=== PATIENT | female | born 1985 | race Caucasian/White ===

== ENCOUNTER 2017-09-24 10:57 | Emergency (ER) | payer SELFPAY ==
[2017-09-24 11:02] VITALS: BP 131/85
[2017-09-24] MEDS ORDERED: KETOROLAC TROMETHAMINE INJ/PF 30 MG/1 ML SDV IM ONE (12:11)
--- NOTE | 2017-09-24 12:15 | ER Document Report ---
ED Neck/Back Problem - General Chief Complaint: Low Back Pain Stated Complaint: BACK PAIN Time Seen by Provider: 09/24/17 11:55 Mode of Arrival: Ambulatory Information source: Patient TRAVEL OUTSIDE OF THE [place] IN LAST 30 DAYS: No - HPI Patient complains to provider of: Pain, Lower back Notes: Patient is here with complaints of low back pain. The patient has a history of chronic low back pain is degenerative disc disease. States that over the last few days her pain is gotten worse than normal. Pain is now radiating down both of her legs occasionally. She denies any bowel or bladder dysfunction. No recent fall or injury. No fever. No abdominal pain. No nausea, vomiting, diarrhea. No dysuria or hematuria. No rash. She denies any IV drug use. No chest pain or shortness of breath. Pain is worse with movement, better with rest. She was having trouble at work states that her home and she came into that she could be evaluated and to get a work note. No other complaints. - Related Data Allergies/Adverse Reactions: latex [Latex] Allergy (Verified 10/13/15 04:19) SWELLING Past Medical History - Social History Smoking Status: Current Every Day Smoker Family History: Hypertension - Past Medical History Cardiac Medical History: Denies: Hx Coronary Artery Disease, Hx Heart Attack, Hx Hypertension Pulmonary Medical History: Reports: Hx Pneumonia - walking pneumonia Denies: Hx Asthma, Hx Bronchitis, Hx COPD, Hx Tuberculosis Neurological Medical History: Denies: Hx Cerebrovascular Accident, Hx Seizures GI Medical History: Reports: Hx Gastroesophageal Reflux Disease Musculoskeltal Medical History: Denies Hx Arthritis Psychiatric Medical History: Reports: Hx Bipolar Disorder - borderline per pt, Hx Depression - Anxiety Denies: Hx Post Traumatic Stress Disorder, Hx Schizophrenia Past Surgical History: Reports: Hx Cholecystectomy, Hx Oral Surgery - wisdom teeth removed, Hx Tubal Ligation. Denies: Hx Hysterectomy, Hx Pacemaker - Immunizations Hx Diphtheria, Pertussis, Tetanus Vaccination: Yes - 2006 Review of Systems - Review of Systems -: Yes All other systems reviewed and negative Physical Exam - Vital signs Vitals: Temp Pulse Resp BP Pulse Ox 98.6 F 98 16 131/85 H 98 09/24/17 11:01 09/24/17 11:01 09/24/17 11:01 09/24/17 11:01 09/24/17 11:01 - Notes Notes: GENERAL: alert, cooperative, nontoxic, no distress. HEAD: normocephalic, atraumatic EYES: conjunctiva pink without discharge, no external redness or swelling. EARS: no external swelling, no external redness NOSE: atraumatic, no external swelling MOUTH/THROAT: mucous membranes moist and pink, posterior pharynx without erythema, swelling, exudate. No trismus or drooling. NECK: soft, supple, full range of motion, no meningismus. CHEST: no distress, lungs clear and equal throughout. No wheezing, rales, rhonchi. CARDIAC: regular rate and rhythm, no murmur, normal capillary refill, normal pulses. No peripheral edema noted. ABDOMEN: soft, nontender, no pusatile mass. BACK: No CVA tenderness. Mild tenderness to the lumbar paraspinal muscles. No midline tenderness, step-offs, crepitus. Slightly limited range of motion secondary to pain. EXTREMITIES: full range of motion of all extremities. No redness, no swelling. NEURO: alert and oriented A&O x 3, no focal deficits, full range of motion of all extremities. 5 out of 5 flexion and extension of the lower extremities bilaterally. Patellar and Achilles deep tendon reflexes are +2 bilaterally. Normal sensation with no saddle anesthesia. Patient can dorsiflex the great toes bilaterally. PYSCH: appropriate mood, affect. Patient is cooperative. SKIN: pink, warm, dry, no rash. Course - Re-evaluation Re-evalutation: 09/24/17 12:13 Patient is nontoxic appearing with stable vitals. She is here with complaints of low back pain. She is a history of chronic back pain and denies any new injuries or falls. No fever. No IV drug use. No sign or risk of cauda equina , epidural abscess/bleed, discitis, osteomyelitis, pyelonephritis, UTI, AAA. She is a benign exam at this time. This point the patient was given a shot of Toradol in the emergency department will be discharged home with [place]. She will be given referral to the [facility]. Follow-up if not better in the next week, sooner for worsening pain, fever, numbness, tingling, weakness , bowel or bladder dysfunction, or for any further concerns. The patient is noted to have elevated blood pressure during today's emergency department visit. The patient was informed of this finding. The patient was instructed that this may be related to pre-hypertension and requires further evaluation with a primary care provider. The patient has no hypertensive symptoms at this time. The patient's emergency department workup and current diagnosis were explained to the patient and or family. Follow-up instructions were provided. Medications if prescribed were discussed. Instructions for when to return to the emergency department including specific worrisome symptoms were discussed with the patient and/or family. - Vital Signs Vital signs: Temp Pulse Resp BP Pulse Ox 98.6 F 98 16 131/85 H 98 09/24/17 11:01 09/24/17 11:01 09/24/17 11:01 09/24/17 11:01 09/24/17 11:01 Discharge - Discharge Clinical Impression: Chronic low back pain Qualifiers: Back pain laterality: bilateral Sciatica presence: with sciatica Sciatica laterality: bilateral sciatica Qualified Code(s): M54.42 - Lumbago with sciatica , left side; M54.41 - Lumbago with sciatica, right side; M54.41 - Lumbago with sciatica, right side; G89.29 - Other chronic pain; G89.29 - Other chronic pain Condition: Stable Disposition: HOME, SELF-CARE Instructions: Low Back Pain ([facility]) Additional Instructions: Take medications as prescribed. Follow-up with your doctor at the next available appointment. Follow-up sooner for worsening pain, fever, numbness, tingling, weakness, bowel or bladder dysfunction, or for any further concerns. Your blood pressure was elevated during today's visit. Have this rechecked with your doctor. Prescriptions: Diclofenac Sodium [Voltaren 50 Mg Tablet.] 50 mg PO BID #20 tablet. Forms: Elevated Blood Pressure, Smoking Cessation Education Referrals: [facility] [Provider Group] - Follow up as needed
== END 2017-09-24 12:24 | disposition home or self-care (01) ==
LOC: ER 10:57
DX: M54.42 Lumbago with sciatica, left side (principal); M54.41 Lumbago with sciatica, right side; G89.29 Other chronic pain; Z91.040 Latex allergy status; Z90.49 Acquired absence of other specified parts of digestive tract; Z98.51 Tubal ligation status
CPT/HCPCS: 99283; 96372; J1885

== ENCOUNTER 2017-09-28 07:52 | Emergency (ER) | payer SELFPAY ==
[2017-09-28] MEDS ORDERED: NORMAL SALINE 1000 ML 1,000 ML IV ONE (08:38)
[2017-09-28] MEDS ORDERED: KETOROLAC TROMETHAMINE INJ/PF 30 MG/1 ML SDV IV ONE (08:38)
[2017-09-28] MEDS ORDERED: ONDANSETRON HCL INJ/PF 4 MG/2 ML SDV IV ONE (08:40)
[2017-09-28] MEDS ORDERED: FAMOTIDINE INJ/PF 20 MG/2 ML SDV IV ONE (08:40)
--- NOTE | 2017-09-28 09:17 | RADIOLOGY REPORT (SQ) ---
EXAM DESCRIPTION: ACUTE ABDOMEN SERIES COMPLETED DATE/TIME: 09/28/2017 9:06 am REASON FOR STUDY: ruq pain COMPARISON: None. NUMBER OF VIEWS: Three views. TECHNIQUE: Frontal chest, supine abdomen and upright/decubitus abdomen radiographic images acquired. LIMITATIONS: None. FINDINGS: CHEST: Lungs clear of infiltrates. FREE AIR: None. No abnormal gas collections. BOWEL GAS PATTERN: Nonobstructive pattern. No dilated loops or air fluid levels. CALCIFICATIONS: No suspicious calcifications. HARDWARE: Bilateral tubal ligation clips. SOFT TISSUES: No gross mass or suggestion of organomegaly. BONES: No acute fracture. No worrisome bone lesions. OTHER: No other significant finding. IMPRESSION: NO RADIOGRAPHIC EVIDENCE FOR ACUTE ABDOMINAL DISEASE. TECHNICAL DOCUMENTATION: JOB ID: [id number] [email or web address] All Rights Reserved Reading location - IP/workstation name: [email or web address]
[2017-09-28 09:55] LABS: ABSOLUTE EOSINOPHILS # (AUTO) 0.2 10^3/uL (0.0-0.6); ABSOLUTE MONOCYTES (AUTO) 0.6 10^3/uL (0.1-1.4); ABSOLUTE NEUT (AUTO) 6.8 10^3/uL (1.7-8.2); BASOPHILS % (AUTO) 0.4 % (0-2); EOSINOPHILS % (AUTO) 2.7 % (0-6); HEMATOCRIT 35.8 % (36.0-47.0); HEMOGLOBIN 12.2 g/dL (12.0-15.5); LYMPHOCYTES % (AUTO) 11.4 % (13-45); MEAN CORPUSCULAR HEMOGLOBIN 31.1 pg (27.0-33.4); MEAN CORPUSCULAR HGB CONC 34.2 g/dL (32.0-36.0); MEAN CORPUSCULAR VOLUME 91 fl (80-97); MONOCYTES % (AUTO) 7.2 % (3-13); PLATELET COUNT 253 10^3/uL (150-450); RED BLOOD COUNT 3.93 10^6/uL (3.72-5.28); RED CELL DISTRIBUTION WIDTH 12.7 % (11.5-14.0); SEGMENTED NEUTROPHILS % (AUTO) 78.3 % (42-78); TOTAL CELLS COUNTED % (AUTO) 100 %; WHITE BLOOD COUNT 8.7 10^3/uL (4.0-10.5)
[2017-09-28 10:06] LABS: ALANINE AMINOTRANSFERASE 68 U/L (9-52); ALBUMIN 3.9 g/dL (3.5-5.0); ALKALINE PHOSPHATASE 74 U/L (38-126); ANION GAP 10 (5-19); ASPARTATE AMINO TRANSFERASE 91 U/L (14-36); BILIRUBIN,DIRECT 0.2 mg/dL (0.0-0.4); BILIRUBIN,TOTAL 0.3 mg/dL (0.2-1.3); BLOOD UREA NITROGEN 13 mg/dL (7-20); CALCIUM 9.3 mg/dL (8.4-10.2); CARBON DIOXIDE 30 mmol/L (22-30); CHLORIDE 105 mmol/L (98-107); GLUCOSE 110 mg/dL (75-110); LIPASE 25.8 U/L (23-300); POTASSIUM 3.5 mmol/L (3.6-5.0); SODIUM 144.6 mmol/L (137-145); TOTAL PROTEIN 6.4 g/dL (6.3-8.2)
[2017-09-28] MEDS ORDERED: LIDOCAINE 2% VISCOUS SOLN 20 ML UDCUP PO ONE (10:36)
[2017-09-28] MEDS ORDERED: MAG HYDROX/AL HYDROX/SIMETH SUSP 30 ML UDCUP PO ONE (10:36)
[2017-09-28] MEDS ORDERED: METOCLOPRAMIDE HCL ORAL SOLN 10 MG/10 ML UDCUP PO ONE (10:36)
--- NOTE | 2017-09-28 10:41 | ER Document Report ---
ED General - General Chief Complaint: Upper Abdominal Pain Stated Complaint: ABDOMINAL PAIN Time Seen by Provider: 09/28/17 08:05 TRAVEL OUTSIDE OF THE [place] IN LAST 30 DAYS: No - HPI Patient complains to provider of: Right upper quadrant abdominal pain nausea vomiting Notes: Patient coming in with above-stated symptoms ongoing for approximately 1 week. Patient states mostly exacerbated with food states states his burning does radiate to her back. Patient has a history of cholecystectomy approximately 6 years ago. Patient upon review of her old records that showed a upper GI scope at that time showing gastritis and duodenitis. Patient denies being on any PPIs or other medications for any GI issues. Patient denies any fevers or chills patient denies any recent antibiotics denies any recent travel. Patient upon my evaluation as she is resting comfortably - Related Data Allergies/Adverse Reactions: latex [Latex] Allergy (Verified 09/28/17 07:54) SWELLING Past Medical History - Social History Smoking Status: Current Every Day Smoker Chew tobacco use (# tins/day): No Frequency of alcohol use: None Drug Abuse: None Family History: Hypertension Patient has suicidal ideation: No Patient has homicidal ideation: No - Past Medical History Cardiac Medical History: Denies: Hx Coronary Artery Disease, Hx Heart Attack, Hx Hypertension Pulmonary Medical History: Reports: Hx Pneumonia - walking pneumonia Denies: Hx Asthma, Hx Bronchitis, Hx COPD, Hx Tuberculosis Neurological Medical History: Denies: Hx Cerebrovascular Accident, Hx Seizures Renal/ Medical History: Denies: Hx Peritoneal Dialysis GI Medical History: Reports: Hx Gastroesophageal Reflux Disease Musculoskeltal Medical History: Denies Hx Arthritis Psychiatric Medical History: Reports: Hx Bipolar Disorder - borderline per pt, Hx Depression - Anxiety Denies: Hx Post Traumatic Stress Disorder, Hx Schizophrenia Past Surgical History: Reports: Hx Cholecystectomy, Hx Oral Surgery - wisdom teeth removed, Hx Tubal Ligation. Denies: Hx Hysterectomy, Hx Pacemaker - Immunizations Hx Diphtheria, Pertussis, Tetanus Vaccination: Yes - 2006 Review of Systems - Review of Systems Gastrointestinal: Abdominal pain, Nausea, Vomiting -: Yes All other systems reviewed and negative Physical Exam - Vital signs Vitals: Temp Pulse Resp BP Pulse Ox 98.4 F 91 18 117/80 98 09/28/17 07:58 09/28/17 07:58 09/28/17 07:58 09/28/17 07:58 09/28/17 07:58 Interpretation: Normal - General General appearance: Appears well, Alert - HEENT Head: Normocephalic, Atraumatic Eyes: Normal Pupils: PERRL - Respiratory Respiratory status: No respiratory distress Chest status: Nontender Breath sounds: Normal Chest palpation: Normal - Cardiovascular Rhythm: Regular Heart sounds: Normal auscultation Murmur: No - Abdominal Inspection: Normal Distension: No distension Bowel sounds: Normal Tenderness: Nontender. No: McBurney's point, Cueto's sign, Guarding, Rebound Organomegaly: No organomegaly - Back Back: Normal, Nontender - Extremities General upper extremity: Normal inspection, Nontender, Normal color, Normal ROM , Normal temperature General lower extremity: Normal inspection, Nontender, Normal color, Normal ROM , Normal temperature, Normal weight bearing. No: David's sign - Neurological Neuro grossly intact: Yes Cognition: Normal Orientation: AAOx4 [place] Coma Scale Eye Opening: Spontaneous [place] Coma Scale Verbal: Oriented [place] Coma Scale Motor: Obeys Commands Shreya Coma Scale Total: 15 Speech: Normal Motor strength normal: LUE, RUE, LLE, RLE Sensory: Normal - Psychological Associated symptoms: Normal affect, Normal mood - Skin Skin Temperature: Warm Skin Moisture: Dry Skin Color: Normal Course - Re-evaluation Re-evalutation: 09/28/17 15:09 The patient presents with abdominal pain without signs of peritonitis or other life-threatening or serious etiology. The patient appears stable for discharge and has been instructed to return immediately if the symptoms worsen in any way , or in 8-12hr if not improved for re-evaluation. The patient has been instructed to return if the symptoms worsen or change in any way. Laboratory studies do not show any significant pathology. Patient's history of GI scope showing duodenitis possible etiology for her symptoms. Patient was treated with Carafate and Reglan Bentyl and PPI. I recommend patient follow-up with primary care physician for further evaluation. Patient was also instructed to use this to clear liquid diet for the next 1224 hrs. Patient states understanding was discharged home - Vital Signs Vital signs: Temp Pulse Resp BP Pulse Ox 97.7 F 73 20 116/79 97 09/28/17 10:59 09/28/17 10:59 09/28/17 10:59 09/28/17 10:59 09/28/17 10:59 - Laboratory Result Diagrams: 09/28/17 09:20 09/28/17 09:20 Laboratory results interpreted by me: 09/28/17 09/28/17 09:20 09:20 Hct 35.8 L Seg Neutrophils % 78.3 H Lymphocytes % 11.4 L Potassium 3.5 L AST 91 H ALT 68 H Discharge - Discharge Clinical Impression: Upper abdominal pain Condition: Good Disposition: HOME, SELF-CARE Instructions: Clear Liquid Diet ([facility]), Gastritis ([facility]), Gastroenterology Additional Instructions: Your evaluation today is consistent with gastritis more likely duodenitis the inflammation of the last part of the stomach. Your laboratory studies not show any other specific pathology. No signs of hepatitis pancreatitis no signs of any infections or no signs of anything that require emergent surgery. You do should have a recent EGD performed 2011 2012 that did show some inflammation of this area. Treatment involves medication omeprazole to reduce acid production. Reglan to help out with any nausea. Carafate to help out with inflammation of the stomach by coating the stomach. Bentyl was prescribed to help out with any abdominal pain. Would recommend taking Tylenol for pain he may take intermittent Motrin but I would advise you to try to avoid anti-inflammatories as this can cause gastritis or duodenitis to worsen. Do recommend she follow- up with your GI specialist. Return to ER for any other concerns. Prescriptions: Dicyclomine HCl [Bentyl 20 mg Tablet] 20 mg PO QID #40 tablet Metoclopramide HCl [Reglan] 5 mg PO Q6 #30 tablet Omeprazole 20 mg PO DAILY #30 capsule. Sucralfate [Carafate 1 gm Tablet] 1 gm PO ACHS #120 tablet Forms: Return to Work
[2017-09-28 11:03] VITALS: BP 116/79
== END 2017-09-28 11:03 | disposition home or self-care (01) ==
LOC: ER 07:52
DX: R10.11 Right upper quadrant pain (principal); R11.2 Nausea with vomiting, unspecified; F17.200 Nicotine dependence, unspecified, uncomplicated; Z90.49 Acquired absence of other specified parts of digestive tract; Z87.19 Personal history of other diseases of the digestive system; Z91.040 Latex allergy status
CPT/HCPCS: 99284; 96361; 96374; 96375; 36415; 83690; 85025; 80053; 74022; J3490; J1885; J2405; J7030; S0028

== ENCOUNTER 2017-10-27 13:46 | Emergency (ER) | payer SELFPAY ==
[2017-10-27 14:02] VITALS: BP 125/81
--- NOTE | 2017-10-27 14:38 | ER Document Report ---
HPI - HPI Pain Level: 4 Notes: Patient is a 32-year-old female with a history of chronic back pain who presents to the ED complaining of bilateral wrist and hand pain with occasional numbness and tingling that is worse at nighttime. Patient states that she also has been dropping things on occasion. Her symptoms have been ongoing more noticeably over the last 3 days. She is also had some bilateral knee and bilateral ankle pain over the last few days without any known injury. Patient states that she has not had any tick bite or insect bite recently. She has not noticed any rash or illness. Patient states that Tylenol does help with her symptoms. Patient states that she is currently asymptomatic and does not have any pain. Patient states that she is working on getting insurance so she can start to see a specialist. She is otherwise eating and drinking without difficulties. She is urinating normally and having normal bowel movements. No other significant past medical history. Denies any headache, fever, neck pain, URI, sore throat, chest pain, palpitations, syncope, cough, shortness of breath , wheeze, dyspnea, abdominal pain, nausea/vomiting/diarrhea, urinary retention, dysuria, hematuria, loss of control of bowel or bladder, saddle anesthesia, muscle paralysis, or rash. - ROS Systems Reviewed and Negative: Yes All other systems reviewed and negative - REPRODUCTIVE LMP: [id number] Reproductive: DENIES: : - MUSCULOSKELETAL Musculoskeletal: REPORTS: Extremity pain Past Medical History - Social History Smoking Status: Current Every Day Smoker Chew tobacco use (# tins/day): No Frequency of alcohol use: None Drug Abuse: None Family History: Hypertension Patient has suicidal ideation: No Patient has homicidal ideation: No - Past Medical History Cardiac Medical History: Denies: Hx Coronary Artery Disease, Hx Heart Attack, Hx Hypertension Pulmonary Medical History: Reports: Hx Pneumonia - walking pneumonia Denies: Hx Asthma, Hx Bronchitis, Hx COPD, Hx Tuberculosis Neurological Medical History: Denies: Hx Cerebrovascular Accident, Hx Seizures Renal/ Medical History: Denies: Hx Peritoneal Dialysis GI Medical History: Reports: Hx Gastroesophageal Reflux Disease Musculoskeltal Medical History: Denies Hx Arthritis Psychiatric Medical History: Reports: Hx Bipolar Disorder - borderline per pt, Hx Depression - Anxiety Denies: Hx Post Traumatic Stress Disorder, Hx Schizophrenia Past Surgical History: Reports: Hx Cholecystectomy, Hx Oral Surgery - wisdom teeth removed, Hx Tubal Ligation. Denies: Hx Hysterectomy, Hx Pacemaker - Immunizations Hx Diphtheria, Pertussis, Tetanus Vaccination: Yes - 2006 [facility] Provider Document - CONSTITUTIONAL Agree With Documented VS: Yes Notes: PHYSICAL EXAMINATION: GENERAL: Well-appearing, well-nourished and in no acute distress. HEAD: Atraumatic, normocephalic. EYES: Pupils equal round and reactive to light, extraocular movements intact, sclera anicteric, conjunctiva are normal. ENT: EAC clear b/l. TM's intact b/l without erythema, fluid, or perforation. Nares patent and without discharge. oropharynx clear without exudates. No tonsilar hypertrophy or erythema. Moist mucous membranes. No sinus tenderness. NECK: Normal range of motion, supple without lymphadenopathy LUNGS: Breath sounds clear to auscultation bilaterally and equal. No wheezes rales or rhonchi. HEART: Regular rate and rhythm without murmurs, rubs, gallops. ABDOMEN: Soft, nontender, nondistended abdomen. No guarding, no rebound. No masses appreciated. Normal bowel sounds present. No CVA tenderness bilaterally. Musculoskeletal: Wrist/hand b/l: No erythema, ecchymosis, deformity, atrophy noted. + tinel b/l L>R. FROM to passive/active. Strength 5+/5. N/V intact distal. No bony tenderness. Knees/ankles: FROM. Strength 5+/5. N/V intact distal. no erythema, ecchymosis, deformity, warmth, swelling. Non-tender. Extremities: No cyanosis, clubbing, or edema b/l. Peripheral pulses 2+. Capillary refill less than 3 seconds. NEUROLOGICAL: Normal speech, normal gait. Normal sensory, motor exams PSYCH: Normal mood, normal affect. SKIN: Warm, Dry, normal turgor, no rashes or lesions noted. - INFECTION CONTROL TRAVEL OUTSIDE OF THE [place] IN LAST 30 DAYS: No Course - Re-evaluation Re-evalutation: 10/27/17 14:36 Patient is an afebrile, well-hydrated, 32-year-old female who presents to the ED with bilateral wrist and hand pain, suspect carpal tunnel syndrome. Vitals are acceptable. PE is otherwise unremarkable for any neurovascular compromise, obvious tendon/ligament rupture, obvious fracture/dislocation, septic joint. No labs or imaging warranted at this time based on H&P. Patient is otherwise asymptomatic at this time without any signs of infection or injury. I will send her home with a steroid taper. Conservative measures otherwise for symptoms. Patient may garbage pick up worker a volar wrist splint at the pharmacy to wear as needed. Patient to establish with the PCM in the next week. Consider consult orthopedic/physical therapy. Return to the ED with any worsening/concerning symptoms otherwise as reviewed discharge. Patient is in agreement. - Vital Signs Vital signs: Temp Pulse Resp BP Pulse Ox 98.8 F 77 16 125/81 97 10/27/17 14:00 10/27/17 14:00 10/27/17 14:00 10/27/17 14:00 10/27/17 14:00 Discharge - Discharge Clinical Impression: Bilateral wrist pain Condition: Stable Disposition: HOME, SELF-CARE Instructions: Carpal Tunnel Syndrome ([facility]) Additional Instructions: Rest, Ice, Compression, Elevation Tylenol/ibuprofen as needed Light stretches daily Strength exercises as able Moist heat and massage may help F/u with your PCP in 3-5 days for a recheck Consider consult(s) with Orthopedics/physical therapy for ongoing/worsening symptoms Return to the ED with any worsening symptoms and/or development of fever, headache, chest pain, palpitations, syncope, shortness of breath, trouble breathing, abdominal pain, n/v/d, muscle weakness/paralysis, numbness/tingling, swelling, redness, or other worsening symptoms that are concerning to you. Prescriptions: Prednisone 20 mg PO ASDIR #18 tablet Forms: Smoking Cessation Education Referrals: [facility] [Provider Group] - Follow up as needed
== END 2017-10-27 14:47 | disposition home or self-care (01) ==
LOC: ER 13:46
DX: G89.29 Other chronic pain (principal); M25.532 Pain in left wrist; M25.531 Pain in right wrist; M79.642 Pain in left hand; M79.641 Pain in right hand; M54.9 Dorsalgia, unspecified; F17.200 Nicotine dependence, unspecified, uncomplicated; Z90.49 Acquired absence of other specified parts of digestive tract
CPT/HCPCS: 99283

== ENCOUNTER 2019-11-30 22:44 | Observation (INO) | payer SELFPAY ==
--- NOTE | 2019-11-30 22:57 | ER Document Report ---
ED Medical Screen (RME) - General Stated Complaint: SNAKE BITE Time Seen by Provider: 11/30/19 22:55 Mode of Arrival: Wheelchair Information source: Patient Notes: Patient reports getting bit by a snake about an hour prior to arrival. Patient complains of increased pain and some swelling distal to the site of the bite. Patient does have puncture wound to medial aspect of left lower leg. I have greeted and performed a rapid initial assessment of this patient. A comprehensive ED assessment and evaluation of the patient, analysis of test results and completion of the medical decision making process will be conducted by additional ED providers. TRAVEL OUTSIDE OF THE [place] IN LAST 30 DAYS: No - Related Data Allergies/Adverse Reactions: latex [Latex] Allergy (Verified 10/27/17 13:47) SWELLING Past Medical History - Past Medical History Cardiac Medical History: Denies: Hx Coronary Artery Disease, Hx Heart Attack, Hx Hypertension Pulmonary Medical History: Reports: Hx Pneumonia - walking pneumonia Denies: Hx Asthma, Hx Bronchitis, Hx COPD, Hx Tuberculosis Neurological Medical History: Denies: Hx Cerebrovascular Accident, Hx Seizures Renal/ Medical History: Denies: Hx Peritoneal Dialysis GI Medical History: Reports: Hx Gastroesophageal Reflux Disease Musculoskeltal Medical History: Denies Hx Arthritis Psychiatric Medical History: Reports: Hx Bipolar Disorder - borderline per pt, Hx Depression - Anxiety Denies: Hx Post Traumatic Stress Disorder, Hx Schizophrenia Past Surgical History: Reports: Hx Cholecystectomy, Hx Oral Surgery - wisdom teeth removed, Hx Tubal Ligation. Denies: Hx Hysterectomy, Hx Pacemaker - Immunizations Hx Diphtheria, Pertussis, Tetanus Vaccination: Yes - 2005 Physical Exam - General Notes: Tenderness to distal left lower extremity with mild edema and puncture lamont wounds to medial aspect of the leg. Course - Re-evaluation Re-evalutation: 11/30/19 22:57 Charge nurse advised the patient status.
[2019-11-30] MEDS ORDERED: FENTANYL CITRATE INJ/PF 100 MCG/2 ML AMPUL IV ONE (23:31)
[2019-11-30] MEDS ORDERED: ANTIVENIN,CROTALIDAE FAB(OVIN) INJ 1 VIAL IV ONE (23:59)
[2019-11-30] MEDS ORDERED: NORMAL SALINE 1000 ML 1,000 ML IV ONE (23:59)
[2019-12-01] MEDS ORDERED: HYDROMORPHONE HCL INJ/PF 2 MG/ML AMPULE IV ONE (00:18)
[2019-12-01] MEDS ORDERED: FAMOTIDINE INJ/PF 20 MG/2 ML SDV IV ONE (00:19)
[2019-12-01] MEDS ORDERED: DIPHENHYDRAMINE HCL 50 MG/ML VIAL IV ONE (00:19)
[2019-12-01] MEDS ORDERED: CEFAZOLIN 2 GM/D5W RTU 2 GM/50 ML RTUPB IV ONE ×2 (00:20→00:46)
[2019-12-01 00:25] LABS: ABSOLUTE BASOPHILS # (AUTO) 0.1 10^3/uL (0.0-0.2); ABSOLUTE EOSINOPHILS # (AUTO) 0.2 10^3/uL (0.0-0.6); ABSOLUTE MONOCYTES (AUTO) 0.7 10^3/uL (0.1-1.4); ABSOLUTE NEUT (AUTO) 7.3 10^3/uL (1.7-8.2); BASOPHILS % (AUTO) 0.5 % (0-2); EOSINOPHILS % (AUTO) 1.8 % (0-6); HEMATOCRIT 41.2 % (36.0-47.0); HEMOGLOBIN 14.3 g/dL (12.0-15.5); LYMPHOCYTES % (AUTO) 19.6 % (13-45); MEAN CORPUSCULAR HEMOGLOBIN 31.6 pg (27.0-33.4); MEAN CORPUSCULAR HGB CONC 34.7 g/dL (32.0-36.0); MEAN CORPUSCULAR VOLUME 91 fl (80-97); MONOCYTES % (AUTO) 6.6 % (3-13); PLATELET COUNT 228 10^3/uL (150-450); RED BLOOD COUNT 4.52 10^6/uL (3.72-5.28); RED CELL DISTRIBUTION WIDTH 12.9 % (11.5-14.0); SEGMENTED NEUTROPHILS % (AUTO) 71.5 % (42-78); TOTAL CELLS COUNTED % (AUTO) 100 %; WHITE BLOOD COUNT 10.2 10^3/uL (4.0-10.5)
--- NOTE | 2019-12-01 00:27 | ER Document Report ---
ED General - General Chief Complaint: Snake Bite Stated Complaint: SNAKE BITE Time Seen by Provider: 11/30/19 22:55 Mode of Arrival: Wheelchair Information source: Patient Notes: 11/30/19 23:[address] Hinson regarding patient, she advises starting CroFab with patient's worsening pain and swelling symptoms. - Vital Signs Vital signs: Temp Pulse Resp BP Pulse Ox 99.4 F 92 16 126/80 H 100 11/30/19 23:05 11/30/19 23:05 11/30/19 23:08 11/30/19 23:05 11/30/19 23:05 Original Note: ED Medical Screen (RME) - General Stated Complaint: SNAKE BITE Time Seen by Provider: 11/30/19 22:55 Mode of Arrival: Wheelchair Information source: Patient Notes: Patient reports getting bit by a snake about an hour prior to arrival. Patient complains of increased pain and some swelling distal to the site of the bite. Patient does have puncture wound to medial aspect of left lower leg. my notes 34-year-old female arrives with chief complaint of left medial malleolus ankle pain after she was bitten by a snake. @2129 she went outside to see what her dog was barking about and felt instantaneous fire-like sensation to her left medial ankle. She did not see what kind of snake but knew it was a snake by outlines. She called medics and EMS reported at 215 that 2 fang chance were present along the left medial ankle. Measurements were taken of the bite site with no changes and diameter girth by 2346. Patient still in distress from pain despite receiving 50 of fentanyl. She was written for Benadryl Pepcid Decadron Dilaudid Phenergan and IV fluids and antivenom. TRAVEL OUTSIDE OF THE [place] IN LAST 30 DAYS: No - HPI Onset: Just prior to arrival Onset/Duration: Sudden, Persistent Quality of pain: Achy Severity: Severe Pain Level: 5 Associated symptoms: Fever, Leg swelling Exacerbated by: Movement Relieved by: Denies Similar symptoms previously: No Recently seen / treated by doctor: No - Related Data Allergies/Adverse Reactions: latex [Latex] Allergy (Verified 11/30/19 23:35) SWELLING Past Medical History - General Information source: Patient - Social History Smoking Status: Current Every Day Smoker Cigarette use (# per day): Yes Chew tobacco use (# tins/day): No Smoking Education Provided: Yes Frequency of alcohol use: None Drug Abuse: None Lives with: Family Family History: Reviewed & Not Pertinent, Hypertension Patient has suicidal ideation: No Patient has homicidal ideation: No - Past Medical History Cardiac Medical History: Denies: Hx Coronary Artery Disease, Hx Heart Attack, Hx Hypertension Pulmonary Medical History: Reports: Hx Pneumonia - walking pneumonia Denies: Hx Asthma, Hx Bronchitis, Hx COPD, Hx Tuberculosis Neurological Medical History: Denies: Hx Cerebrovascular Accident, Hx Seizures Renal/ Medical History: Denies: Hx Peritoneal Dialysis GI Medical History: Reports: Hx Gastroesophageal Reflux Disease Musculoskeletal Medical History: Denies Hx Arthritis Psychiatric Medical History: Reports: Hx Bipolar Disorder - borderline per pt, Hx Depression - Anxiety Denies: Hx Post Traumatic Stress Disorder, Hx Schizophrenia Past Surgical History: Reports: Hx Cholecystectomy, Hx Oral Surgery - wisdom finesse th removed, Hx Tubal Ligation. Denies: Hx Hysterectomy, Hx Pacemaker - Immunizations Hx Diphtheria, Pertussis, Tetanus Vaccination: Yes - 2005 Review of Systems - Review of Systems Constitutional: See HPI, Weakness EENT: No symptoms reported Cardiovascular: No symptoms reported Respiratory: No symptoms reported Gastrointestinal: No symptoms reported Genitourinary: No symptoms reported Female Genitourinary: No symptoms reported Musculoskeletal: See HPI, Joint pain, Joint swelling, Muscle pain, Ankle swelling Skin: See HPI, Other - Fang chance to a number along left medial malleolus with minimal erythema Hematologic/Lymphatic: No symptoms reported Neurological/Psychological: No symptoms reported Physical Exam - Vital signs Vitals: Temp Pulse BP Pulse Ox 99.4 F 92 126/80 H 100 11/30/19 23:05 11/30/19 23:05 11/30/19 23:05 11/30/19 23:05 Interpretation: Normal - General General appearance: Anxious - HEENT Head: Normocephalic, Atraumatic Eyes: Normal Pupils: PERRL Pharynx: Normal Neck: Normal - Respiratory Respiratory status: No respiratory distress Chest status: Nontender Breath sounds: Normal Chest palpation: Normal - Cardiovascular Rhythm: Regular Heart sounds: Normal auscultation Murmur: No - Abdominal Inspection: Normal Distension: No distension Bowel sounds: Normal Tenderness: Nontender Organomegaly: No organomegaly - Rectal Hemorrhoids: Other - deferred - Genitourinary [place] exam: Other - deferred - Back Back: Normal - Extremities General upper extremity: Normal inspection General lower extremity: Other - Left medial malleolus as per HPI with snakebite to fang chance approximately 1 cm apart - Neurological Neuro grossly intact: Yes Cognition: Normal Orientation: AAOx4 [place] Coma Scale Eye Opening: Spontaneous [place] Coma Scale Verbal: Oriented [place] Coma Scale Motor: Obeys Commands [place] Coma Scale Total: 15 Speech: Normal Motor strength normal: LUE, RUE, LLE, RLE Sensory: Normal - Psychological Associated symptoms: Anxious - Skin Skin Temperature: Warm Course - Vital Signs Vital signs: Temp Pulse Resp BP Pulse Ox 98.0 F 77 16 109/64 100 12/01/19 16:41 12/01/19 16:41 12/01/19 16:41 12/01/19 16:41 12/01/19 16:41 - Laboratory Result Diagrams: 12/01/19 07:05 12/01/19 00:00 Laboratory results interpreted by me: 11/30/19 12/01/19 23:44 00:00 Sodium 136.8 L Ur Leukocyte Esterase TRACE H - EKG Interpretation by Ak EKG shows normal: Sinus rhythm Rate: Normal Rhythm: NSR Critical Care Note - Critical Care Note Comments: I discussed this case with surgeon Dr. Kelton Alexandre at 00 50 and he advises he will see the patient in the ER. Discharge - Discharge Clinical Impression: Snake bite Qualifiers: Encounter type: initial encounter Qualified Code(s): W59.11XA - Bitten by nonvenomous snake, initial encounter Condition: Good Disposition: ADMITTED INPATIENT
[2019-12-01 00:37] LABS: ANION GAP 9 (5-19); BLOOD UREA NITROGEN 11 mg/dL (7-20); CALCIUM 9.5 mg/dL (8.4-10.2); CARBON DIOXIDE 24 mmol/L (22-30); CHLORIDE 104 mmol/L (98-107); CREATINE KINASE 85 U/L (30-135); GLUCOSE 93 mg/dL (75-110); POTASSIUM 3.6 mmol/L (3.6-5.0)
[2019-12-01 00:46] LABS: INTERNATIONAL RATION (INR) 0.97; PROTHROMBIN TIME 12.9 SEC (11.4-15.4)
[2019-12-01 00:47] LABS: FIBRINOGEN 312 mg/dL (209-497); PARTIAL THROMBOPLASTIN TIME 28.4 SEC (23.5-35.8)
[2019-12-01 00:59] LABS: D-DIMER < 0.27 ug/mL (0.00-0.50)
[2019-12-01] MEDS ORDERED: DEXTROSE 5%-LACTATED RINGERS 1,000 ML IV PRN (01:50)
[2019-12-01] MEDS ORDERED: ONDANSETRON HCL INJ/PF 4 MG/2 ML SDV IV PRN (01:50)
--- NOTE | 2019-12-01 01:50 | PDOC H&P ---
History of Present Illness Admission Date/PCP: 12/01/19 Patient complains of: pains left lower leg History of Present Illness: YULI CORCORAN is a 34 year old female who went out to see to check why her dog is barking when she instantaneously felt severe pains on the left medial lower leg. This happened around 930 last night. She called EMS when she noticed snakebite on her left medial malleolar area and was checked and was told to go to the emergency room. She got in the emergency room around 11:35 PM complaining of more severe pains along the left lower leg. She was given pain medicine in the form of Dilaudid and 4 doses of anti-venom (CroFab). Her CBC and coagulation studies were all normal. She had a tetanus shot about a year ago. She is still complaining of pains along the left lower leg below the knee. She could barely dorsiflex her left ankle because of severe pains in the left calf. Denies any diabetes mellitus, no hypertension. She is allergic to latex. Denies any shortness of breath Past Medical History Cardiac Medical History: Denies: Coronary Artery Disease, Myocardial Infarction, Hypertension Pulmonary Medical History: Reports: Pneumonia - walking pneumonia Denies: Asthma, Bronchitis, Chronic Obstructive Pulmonary Disease (COPD), Tuberculosis Neurological Medical History: Denies: Seizures GI Medical History: Reports: Gastroesophageal Reflux Disease Musculoskeltal Medical History: Denies: Arthritis Psychiatric Medical History: Reports: Bipolar Disorder - borderline per pt, Depression - Anxiety Denies: Post Traumatic Stress Disorder Hematology: Denies: Anemia Past Surgical History Past Surgical History: Reports: Cholecystectomy, Tubal Ligation Denies: Hysterectomy, Pacemaker Social History Lives with: Family Smoking Status: Current Every Day Smoker Hx Recreational Drug Use: No Hx Prescription Drug Abuse: No Family History Family History: Reviewed & Not Pertinent, Hypertension Parental Family History Reviewed: Yes Children Family History Reviewed: No Sibling(s) Family History Reviewed.: No Medication/Allergy Home Medications: Sertraline HCl [Zoloft] 1 tab PO DAILY 04/06/15 Dexmethylphenidate HCl [Focalin Xr] 1 tab PO DAILY 02/24/16 Hydroxyzine HCl [Atarax 25 mg Tablet] 1 tab PO QID PRN #20 tablet 02/24/16 Prednisone [Deltasone 5 mg Tablet] 5 mg PO ASDIR PRN #100 tablet 02/24/16 Propranolol HCl [Inderal 10 mg Tablet] 10 mg PO Q8 02/24/16 Topiramate [Topamax 100 mg Tablet] 1 tab PO DAILY 02/24/16 Diclofenac Sodium [Voltaren 50 Mg Tablet.] 50 mg PO BID #20 tablet. 09/24/17 Dicyclomine HCl [Bentyl 20 mg Tablet] 20 mg PO QID #40 tablet 09/28/17 Metoclopramide HCl [Reglan] 5 mg PO Q6 #30 tablet 09/28/17 Omeprazole 20 mg PO DAILY #30 capsule. 09/28/17 Sucralfate [Carafate 1 gm Tablet] 1 gm PO ACHS #120 tablet 09/28/17 Prednisone 20 mg PO ASDIR #18 tablet 10/27/17 Allergies/Adverse Reactions: latex [Latex] Allergy (Verified 11/30/19 23:35) SWELLING Review of Systems Constitutional: PRESENT: as per HPI, other - Denies fever no chills Cardiovascular: PRESENT: other - No chest pains no cough Gastrointestinal: PRESENT: other - No pains Musculoskeletal: PRESENT: other - Pains along the left lower leg below the knee Neurological: PRESENT: other - Some numbness of the left toes Physical Exam Vital Signs: Temp Pulse Resp BP Pulse Ox 99.4 F 92 16 132/68 H 100 11/30/19 23:05 11/30/19 23:05 12/01/19 01:16 12/01/19 01:16 12/01/19 01:16 Intake & Output 11/29/19 11/30/19 12/01/19 06:59 06:59 06:59 Weight 76.5 kg General appearance: PRESENT: severe distress Head exam: PRESENT: atraumatic Mouth exam: PRESENT: moist Neck exam: PRESENT: full ROM Respiratory exam: PRESENT: clear to auscultation letty Cardiovascular exam: PRESENT: RRR Pulses: PRESENT: normal radial pulses Vascular exam: PRESENT: normal capillary refill GI/Abdominal exam: PRESENT: soft Rectal exam: PRESENT: deferred Extremities exam: PRESENT: tenderness - Below the knee to the left foot. There is mild swelling but exquisite tenderness primarily are around snakebites on the left medial malleoli are area. Unable to dorsiflex the left ankle because of severe pains. Neurological exam: PRESENT: alert, oriented to person, oriented to place, oriented to time, oriented to situation Psychiatric exam: PRESENT: anxious Skin exam: PRESENT: normal color, warm Results Laboratory Results: 12/01/19 00:00 12/01/19 00:00 12/01/19 12/01/19 12/01/19 00:00 00:00 00:00 WBC 10.2 RBC 4.52 Hgb 14.3 Hct 41.2 MCV 91 MCH 31.6 MCHC 34.7 RDW 12.9 Plt Count 228 Seg Neutrophils % 71.5 Sodium 136.8 L Potassium 3.6 Chloride 104 Carbon Dioxide 24 Anion Gap 9 BUN 11 Creatinine 0.73 Est GFR ( Amer) > 60 Glucose 93 Calcium 9.5 Serum HCG, Qual NEGATIVE 12/01/19 00:00 Creatine Kinase 85 Assessment & Plan - Diagnosis (1) Snake bite Qualifiers: Encounter type: initial encounter Qualified Code(s): W59.11XA - Bitten by nonvenomous snake, initial encounter Is this a current diagnosis for this admission?: Yes - Time Time Spent: 30 to 50 Minutes - Inpatient Certification Medical Necessity: Need For IV Fluids, Need for Pain Control - Plan Summary Plan Summary: 34-year-old female who had snakebite on the left ankle around 9:30 PM last night. Went to ED around 1135 for increasing pains along the left lower leg after being seen by EMS and confirming the snakebite. She got 4 units of CroFab and intravenous Dilaudid. There is mild swelling along the left ankle and calf with exquisite tenderness. Her vital signs are stable and her blood work are all normal. Plans: Continue with the mild left leg elevation Continue with CroFab every 6 hours Monitor coagulation parameters May need orthopedic evaluation for possible compartment syndrome Will keep n.p.o.
[2019-12-01 02:43] LABS: APPEARANCE,URINE CLEAR; BILIRUBIN,URINE NEGATIVE (NEGATIVE); COLOR,URINE STRAW; GLUCOSE, URINE NEGATIVE (NEGATIVE); KETONES,URINE NEGATIVE (NEGATIVE); LEUKOCYTE ESTERASE,URINE TRACE (NEGATIVE); NITRITE,URINE NEGATIVE (NEGATIVE); PROTEIN,URINE NEGATIVE (NEGATIVE); URINE SPECIFIC GRAVITY 1.009; UROBILINOGEN,URINE NEGATIVE mg/dL (<2.0)
[2019-12-01 07:20] LABS: ABSOLUTE BASOPHILS # (AUTO) 0.1 10^3/uL (0.0-0.2); ABSOLUTE EOSINOPHILS # (AUTO) 0.2 10^3/uL (0.0-0.6); ABSOLUTE LYMPHOCYTES (AUTO) 2.1 10^3/uL (0.5-4.7); ABSOLUTE MONOCYTES (AUTO) 0.6 10^3/uL (0.1-1.4); ABSOLUTE NEUT (AUTO) 4.8 10^3/uL (1.7-8.2); BASOPHILS % (AUTO) 0.8 % (0-2); EOSINOPHILS % (AUTO) 2.1 % (0-6); HEMATOCRIT 38.6 % (36.0-47.0); HEMOGLOBIN 13.4 g/dL (12.0-15.5); LYMPHOCYTES % (AUTO) 27.3 % (13-45); MEAN CORPUSCULAR HEMOGLOBIN 31.9 pg (27.0-33.4); MEAN CORPUSCULAR HGB CONC 34.8 g/dL (32.0-36.0); MEAN CORPUSCULAR VOLUME 92 fl (80-97); MONOCYTES % (AUTO) 7.8 % (3-13); PLATELET COUNT 188 10^3/uL (150-450); RED CELL DISTRIBUTION WIDTH 13.3 % (11.5-14.0); TOTAL CELLS COUNTED % (AUTO) 100 %; WHITE BLOOD COUNT 7.7 10^3/uL (4.0-10.5)
[2019-12-01 07:28] LABS: INTERNATIONAL RATION (INR) 1.06; PROTHROMBIN TIME 13.8 SEC (11.4-15.4)
[2019-12-01 07:29] LABS: PARTIAL THROMBOPLASTIN TIME 28.6 SEC (23.5-35.8)
[2019-12-01] MEDS ORDERED: ANTIVENIN,CROTALIDAE FAB(OVIN) INJ 1 VIAL IV ONE (08:00)
[2019-12-01] MEDS: HYDROMORPHONE HCL INJ/PF 2 MG/ML AMPULE IV PRN ×2 (08:06→14:10)
--- NOTE | 2019-12-01 13:18 | EKG REPORT ---
SEVERITY:- NORMAL ECG - SINUS RHYTHM : Confirmed by: Omar Wen MD 01-Dec-2019 13:17:54
[2019-12-01] MEDS ORDERED: HYDROMORPHONE HCL INJ/PF 2 MG/ML AMPULE IV PRN (13:50)
[2019-12-01 16:44] VITALS: BP 109/64
--- NOTE | 2019-12-01 17:09 | PDOC DISCHARGE SUMMARY ---
General - Admit/Disc Date/PCP Admission Date/Primary Care Provider: 12/01/19 02:04 Discharge Date: 12/01/19 - Discharge Diagnosis Final Diagnosis: Snakebite left ankle - Assessment Summary: Patient had a snake bite on the left ankle around 9:30 PM last night. Patient then admitted through the ED around midnight and started on CroFab. Left lower leg was swollen and very painful and tender. Her coagulation and CBC were all normal until this morning. The swelling and pains along the left lower leg is improved though patient still having difficulty putting pressure on the left leg. Physical therapy was consulted for crutch walking. Patient will be discharged on crutches today and to be given prescription for Toradol 10 mg p.o. every 6 hours as needed for pain. - Additional Information Resuscitation Status: Full Code Discharge Diet: Regular Discharge Activity: Activity As Tolerated, Keep Legs Elevated, Other - Crutch walking Referrals: QUETA BERNARDO MD [ACTIVE STAFF] - (FOLLOW UP IN 1 WEEK) Home Medications: No Home Medications 12/01/19 History of Present Illiness History of Present Illness: YULI CORCORAN is a 34 year old female who went out to see to check why her dog is barking when she instantaneously felt severe pains on the left medial lower leg. This happened around 930 last night. She called EMS when she noticed snakebite on her left medial malleolar area and was checked and was told to go to the emergency room. She got in the emergency room around 11:35 PM complaining of more severe pains along the left lower leg. She was given pain medicine in the form of Dilaudid and 4 doses of anti-venom (CroFab). Her CBC and coagulation studies were all normal. She had a tetanus shot about a year ago. She is still complaining of pains along the left lower leg below the knee. She could barely dorsiflex her left ankle because of severe pains in the left calf. Denies any diabetes mellitus, no hypertension. She is allergic to latex. Denies any shortness of breath Hospital Course Hospital Course: Admitted last night for snakebite of the left ankle. Her numbers are normal. Swelling and pains along the left lower leg have decreased but still with difficulty ambulating or putting weight on the left leg. Crutch walking consulted with physical therapy. To be discharged after physical therapy consultation. Physical Exam Vital Signs: Temp Pulse Resp BP Pulse Ox 98.0 F 77 16 109/64 100 12/01/19 16:41 12/01/19 16:41 12/01/19 16:41 12/01/19 16:41 12/01/19 16:41 Intake & Output 11/30/19 12/01/19 12/02/19 06:59 06:59 06:59 Intake Total 50 1236 Balance 50 1236 Weight 82.3 kg Exam: Swelling and tenderness along the left lower leg primarily around the left medial malleolar area Results Laboratory Results: WBC 7.7 10^3/uL (4.0-10.5) 12/01/19 07:05 RBC 4.20 10^6/uL (3.72-5.28) 12/01/19 07:05 Hgb 13.4 g/dL (12.0-15.5) 12/01/19 07:05 Hct 38.6 % (36.0-47.0) 12/01/19 07:05 MCV 92 fl (80-97) 12/01/19 07:05 MCH 31.9 pg (27.0-33.4) 12/01/19 07:05 MCHC 34.8 g/dL (32.0-36.0) 12/01/19 07:05 RDW 13.3 % (11.5-14.0) 12/01/19 07:05 Plt Count 188 10^3/uL (150-450) 12/01/19 07:05 Lymph % (Auto) 27.3 % (13-45) 12/01/19 07:05 [place] % (Auto) 7.8 % (3-13) 12/01/19 07:05 Eos % (Auto) 2.1 % (0-6) 12/01/19 07:05 Baso % (Auto) 0.8 % (0-2) 12/01/19 07:05 Absolute Neuts (auto) 4.8 10^3/uL (1.7-8.2) 12/01/19 07:05 Absolute Lymphs (auto) 2.1 10^3/uL (0.5-4.7) 12/01/19 07:05 Absolute Monos (auto) 0.6 10^3/uL (0.1-1.4) 12/01/19 07:05 Absolute Eos (auto) 0.2 10^3/uL (0.0-0.6) 12/01/19 07:05 Absolute Basos (auto) 0.1 10^3/uL (0.0-0.2) 12/01/19 07:05 Seg Neutrophils % 62.0 % (42-78) 12/01/19 07:05 PT 13.8 SEC (11.4-15.4) 12/01/19 07:05 INR 1.06 12/01/19 07:05 APTT 28.6 SEC (23.5-35.8) 12/01/19 07:05 Fibrinogen 312 mg/dL (209-497) 12/01/19 00:00 D-Dimer < 0.27 ug/mL (0.00-0.50) 12/01/19 00:00 Sodium 136.8 mmol/L (137-145) L 12/01/19 00:00 Potassium 3.6 mmol/L (3.6-5.0) 12/01/19 00:00 Chloride 104 mmol/L (98-107) 12/01/19 00:00 Carbon Dioxide 24 mmol/L (22-30) 12/01/19 00:00 Anion Gap 9 (5-19) 12/01/19 00:00 BUN 11 mg/dL (7-20) 12/01/19 00:00 Creatinine 0.73 mg/dL (0.52-1.25) 12/01/19 00:00 Est GFR ( Amer) > 60 (>60) 12/01/19 00:00 Est GFR (MDRD) Non-Af > 60 (>60) 12/01/19 00:00 Glucose 93 mg/dL (75-110) 12/01/19 00:00 Calcium 9.5 mg/dL (8.4-10.2) 12/01/19 00:00 Creatine Kinase 85 U/L (30-135) 12/01/19 00:00 Serum HCG, Qual NEGATIVE (NEGATIVE) 12/01/19 00:00 Urine Color STRAW 11/30/19 23:44 Urine Appearance CLEAR 11/30/19 23:44 Urine pH 8.0 (5.0-9.0) 11/30/19 23:44 Ur Specific [place] 1.009 11/30/19 23:44 Urine Protein NEGATIVE mg/dL (NEGATIVE) 11/30/19 23:44 Urine Glucose (UA) NEGATIVE mg/dL (NEGATIVE) 11/30/19 23:44 Urine Ketones NEGATIVE mg/dL (NEGATIVE) 11/30/19 23:44 Urine Blood NEGATIVE (NEGATIVE) 11/30/19 23:44 Urine Nitrite NEGATIVE (NEGATIVE) 11/30/19 23:44 Urine Bilirubin NEGATIVE (NEGATIVE) 11/30/19 23:44 Urine Urobilinogen NEGATIVE mg/dL (<2.0) 11/30/19 23:44 Ur Leukocyte Esterase TRACE (NEGATIVE) H 11/30/19 23:44 Urine WBC (Auto) 1 /HPF 11/30/19 23:44 Urine RBC (Auto) 1 /HPF 11/30/19 23:44 Squamous Epi Cells Auto 4 /HPF 11/30/19 23:44 Urine Mucus (Auto) RARE /LPF 11/30/19 23:44 Urine Ascorbic Acid NEGATIVE (NEGATIVE) 11/30/19 23:44 Plan Health Concerns: Ambulation normal Plan of Treatment: Continue with conservative management with as needed p.o. pain medications and crutch walking Goals: To be able to walk normally without crutches Time Spent: Less than 30 Minutes
== END 2019-12-01 17:20 | disposition home or self-care (01) ==
LOC: ER 22:44 → EH 12-01 02:04 → 4S 12-01 04:03
PROVIDERS: ATTEND Surgery
DX: T63.001A Toxic effect of unspecified snake venom, accidental (unintentional), initial encounter (principal); R20.0 Anesthesia of skin; F17.210 Nicotine dependence, cigarettes, uncomplicated; Z91.040 Latex allergy status; R26.2 Difficulty in walking, not elsewhere classified
CPT/HCPCS: 93005; 99285; 96375; 96365; 36415; 82550; 84703; 85025; 85384; 85610; 85730; 83874; 80048; 81001; 85379; 93010; 97116; 97162; G0378 ×2; J0840; J1200; J3010; J1170; J7121; J7030; S0028; J0690